=== PATIENT | male | born 2000 | race Caucasian/White ===

== ENCOUNTER 2019-09-06 13:27 | Emergency (ER) | payer MEDICAID, SELFPAY ==
[2019-09-06 13:34] VITALS: BP 133/73; PULSE 86; RESP 16; TEMP 36.8; O2SAT 98; BMI 34.9
--- NOTE | 2019-09-06 13:41 | XR_ITS ---
PROCEDURE: XR HAND LT MIN 3V CLINICAL INDICATION: INJURY COMPARISON: No exams were available for comparison FINDINGS: No fracture or dislocation. No lytic or blastic change. There is normal mineralization. The joint spaces are well-preserved. No significant degenerative/arthritic changes. No erosive changes evident. Other findings:There is mild diffuse soft tissue swelling of the hand. IMPRESSION: No acute fracture Dictated by: Dr. Altaf Mclain MD 09/06/2019 16:[address] Altaf Mclain MD in [place] 09/06/2019 16:56
[2019-09-06 13:45] VITALS: BP 133/73; PULSE 86; RESP 16; TEMP 36.8; O2SAT 98; BMI 34.8
--- NOTE | 2019-09-06 14:33 | HMH.EDUTC ---
[facility] [place] Disposition Clinical Impression: Fracture, finger, distal phalanx Qualifiers: Encounter type: initial encounter Finger: middle finger Fracture type: closed Fracture alignment: nondisplaced Laterality: left Qualified Code(s): S62.663A - Nondisplaced fracture of distal phalanx of left middle finger, initial encounter for closed fracture Disposition: Home, Self-Care Condition on Discharge: Good Instructions: Finger Fracture, DI for Finger Fracture Additional Instructions: Rest the extremity, Elevate the extremity as tolerated while you are resting. Take ibuprofen for pain. I sent in a prescription to your pharmacy. Follow up with Dr. Fernandez. I put in a referral but you need to call his office and schedule an appointment. Follow up with your regular doctor. GO TO THE ER FOR ANY WORSENING SYMPTOMS Prescriptions: Ibuprofen [Ibuprofen 600mg Tablet] 600 mg PO Q6HP PRN #30 tab PRN Reason: Mild Pain Transmission Status: [facility] Referrals: ProviderNancy MD [Primary Care Provider] - Mitchell Fernandez MD [Staff Physician] - Time of Disposition: 14:35 Medical Decision Making - Medical Records Medical records reviewed: No: I reviewed the patient's medical records. - Lb Inquiry Pt receiving controlled substance: No Vital Signs: 09/06/19 13:34 09/06/19 13:45 09/06/19 14:38 Temperature 98.3 F 98.3 F 98.3 F Temperature Source Oral Oral Pulse Rate 86 Pulse Rate [Left Radial] 86 86 Respiratory Rate 16 16 16 Blood Pressure 133/73 Blood Pressure [Left Arm] 133/73 133/73 Blood Pressure Mean [Left Arm] 93 93 Blood Pressure Source [Left Arm] Automatic Cuff Automatic Cuff Blood Pressure Position [Left Arm] Sitting Sitting 02 Sat by Pulse Oximetry 98 98 Oxygen Delivery Method Room Air Room Air - Radiology Data #1 Image(s): Hand Image Reviewed: Yes I reviewed the patient's radiology image, Yes I have reviewed radiologist's interpretation Preliminary Findings: No Fracture Seen PROCEDURE: XR HAND LT MIN 3V CLINICAL INDICATION: INJURY COMPARISON: No exams were available for comparison FINDINGS: No fracture or dislocation. No lytic or blastic change. There is normal mineralization. The joint spaces are well-preserved. No significant degenerative/arthritic changes. No erosive changes evident. Other findings:There is mild diffuse soft tissue swelling of the hand. IMPRESSION: No acute fracture Dictated by: Dr. Altaf Mclain MD 09/06/2019 16:[address] Altaf Mclain MD in [place] 09/06/2019 16:56 [facility] [place] HPI - General Stated complaint: Lt hand middle finger possibly broke Time Seen by Provider: 09/06/19 13:45 Mode of Arrival: Ambulatory Source of Information: Patient Limitations: No Limitations Description of Symptoms (Recalled from Triage Doc. by RN): PATIENT C/O PAIN TO LEFT MIDDLE FINGER AFTER HITTING IT ON A ROPE SWING YESTERDAY HEENT Symptoms (Recalled from RN notes): No Resp Symptoms (Recalled from RN notes): No Skin Symptoms (Recalled from RN notes): No MS Symptoms (Recalled from RN notes): Yes Functional Status (Recalled from RN notes): WNL - History of Present Illness Provider Complaint: He states that he was swinging on a rope swing yesterday when some how he twisted her left middle finger. Since then he has had pain and swelling of the finger. - Related Data Previous Rx's Medication Instructions Recorded Ibuprofen [Ibuprofen 600mg 600 mg PO Q6HP PRN #30 tab 09/06/19 Tablet] Allergies Allergy/AdvReac Type Severity Reaction Status Date / Time cefaclor [From Ceclor] Allergy Verified 12/09/17 22:20 - Worker's Comp Is this a Worker's Comp case?: No [facility] History - Hepatitis A Screen Drug use history?: No High risk sexual behaviors?: No History of sexually transmitted infection?: No Currently employed?: No Childcare worker?: No Do you have indoor plumbing?: Yes Do you hav
[2019-09-06 14:38] VITALS: BP 133/73; PULSE 86; RESP 16; TEMP 36.8; O2SAT 98
== END 2019-09-06 14:41 | disposition home or self-care (01) ==
PROVIDERS: Emergency Provider Nurse Practitioner Family
DX: S62.663A Nondisplaced fracture of distal phalanx of left middle finger, initial encounter for closed fracture (principal); W22.8XXA Striking against or struck by other objects, initial encounter; Y92.89 Other specified places as the place of occurrence of the external cause; F17.210 Nicotine dependence, cigarettes, uncomplicated
CPT/HCPCS: 73130; 99201

== ENCOUNTER 2020-01-29 12:20 | Emergency (ER) | payer MEDICAID, SELFPAY ==
[2020-01-29 12:50] VITALS: BP 133/91; PULSE 72; RESP 18; O2SAT 96; BMI 34.0
[2020-01-29 13:54] VITALS: BP 133/91; PULSE 72; RESP 18; TEMP 36.9; O2SAT 96
== END 2020-01-29 13:57 | disposition home or self-care (01) ==
PROVIDERS: Emergency Provider Nurse Practitioner Family
DX: Z20.828 Contact with and (suspected) exposure to other viral communicable diseases (principal)
CPT/HCPCS: 99201; U0003